=== PATIENT | male | born 1980 | race Two or more races ===

== ENCOUNTER 2024-03-28 08:56 | Emergency (ER) | payer OTHER ==
[~2024-03-28] VITALS: Ht 172.7 cm; Wt 81.6 kg
[~2024-03-28 08:56] MED LIST: HUMALOG100 UNIT/2 SQ; LANTUS SOL100 UNIT/1 SQ
[2024-03-28] MEDS ORDERED: HUMALOG100 UNIT/2 SUBCUTANEO (09:28)
[2024-03-28] MEDS ORDERED: LANTUS SOL100 UNIT/1 SUBCUTANEO (09:28)
[2024-03-28] MEDS ORDERED: 0.9 % SODIUM CHLORIDE 1,000 ML IV STA (09:38)
[2024-03-28 10:12] LABS: HEMATOCRIT 41.6 % (39.0-48.0); HEMOGLOBIN 14.6 g/dL (13-16.00); MEAN CELL VOLUME 89.9 fL (80.0-100.00); MEAN CORPUSCULAR HEMOGLOBIN 31.6 pg (27.00-32.0); MEAN CORPUSCULAR HGB CONC 35.2 g/dl (32.0-36.0); PLATELET COUNT 308 K/uL (150-450); RED BLOOD COUNT 4.63 M/uL (4.00-6.00); RED CELL DISTRIBUTION WIDTH 12.6 % (11.5-14.5)
[2024-03-28 10:49] LABS: CALCIUM 8.6 mg/dL (8.5-10.1); CREATININE SERUM 0.84 mg/dL (0.70-1.30); GFR 98.81; POTASSIUM 4.1 mEq/L (3.5-5.1)
[2024-03-28 11:20] LABS: PH,URINE 5.5 (5.0-8.0); URINE APPEARANCE Clear; URINE BILIRRUBIN Negative (NEGATIVE); URINE BLOOD Negative; URINE COLOR Dark Yellow; URINE KETONE 15 (NEGATIVE); URINE LEUKOCYTE Negative; URINE NITRATE Negative; URINE PROTEIN Negative (NEGATIVE); URINE UROBILINOGEN 0.2 E.U./dl
[2024-03-28 11:24] LABS: URINE BACTERIA 25.1 uL (0.0-1933); URINE EPITHELIAL CELLS 1.8 uL (0.0-38.8); URINE WBC 3.8 uL (0.0-23.2)
[2024-03-28 12:06] LABS: URINE GLUCOSE 500 MG/DL (NEGATIVE); URINE RBC 1.9 uL (0.0-20.8)
== END 2024-03-28 14:15 | disposition home or self-care (01) ==
LOC: ER 08:57
PROVIDERS: Emergency Medicine
DX: K52.9 Noninfective gastroenteritis and colitis, unspecified (principal); E11.9 Type 2 diabetes mellitus without complications; Z79.4 Long term (current) use of insulin